=== PATIENT | female | born 1960 | race African-American/Black ===

== ENCOUNTER 2018-04-23 19:46 | Emergency (ER) | payer BC ==
[~2018-04-23] VITALS: Ht 172.7 cm; Wt 86.2 kg
[2018-04-23] MEDS ORDERED: MOTRIN800 MG PO (21:37)
[2018-04-23 22:43] VITALS: BP 155/75
== END 2018-04-23 22:43 | disposition home or self-care (01) ==
LOC: EME 19:46 → RME 19:46
PROC: 2W3MX1Z Immobilization of Left Lower Extremity using Splint (ICD-10-PCS; principal; 2018-04-23)
DX: M25.562 Pain in left knee (principal); M25.462 Effusion, left knee; F41.9 Anxiety disorder, unspecified
CPT/HCPCS: 73564; 99281; 99284